=== PATIENT | male | born 1940 | race Caucasian/White ===

== ENCOUNTER 2020-12-20 05:29 | Inpatient (IN) | payer OTHER ==
[2020-12-16 14:31] VITALS: BMI 36.9
[2020-12-20] MEDS ORDERED: EPINEPHrine 1 MG/ML AMP ONE (06:32)
[2020-12-20] MEDS ORDERED: Thrombin 5000 UNITS/5 ML VIAL ONE (06:32)
[2020-12-20] MEDS ORDERED: Bupivacaine PF 0.5% 30 ML VIAL ONE (06:32)
[2020-12-20] MEDS ORDERED: Fentanyl 250 MCG/5 ML VIAL ONE (06:39)
[2020-12-20] MEDS ORDERED: Lidocaine 1% PF 5 ML VIAL ONE (07:07)
[2020-12-20] MEDS ORDERED: Metoclopramide HCl 10 MG/2 ML VIAL ONE (07:07)
[2020-12-20] MEDS ORDERED: Ondansetron PF 4 MG/2 ML Vial ONE (07:07)
[2020-12-20] MEDS ORDERED: Dexamethasone 20 MG/5 ML VIAL ONE (07:07)
[2020-12-20] MEDS ORDERED: Rocuronium Bromide 10 MG/ML (10ML VIAL) ONE (07:07)
[2020-12-20] MEDS ORDERED: PROPOFOL 200 MG/20 ML VIAL ONE (07:07)
[2020-12-20] MEDS ORDERED: Vecuronium 10 MG VIAL ONE (07:07)
[2020-12-20] MEDS ORDERED: PHENYLEPHRINE-NS 100 MCG/ML 10 ML SYRINGE ONE (07:07)
[2020-12-20] MEDS ORDERED: Ketorolac Tromethamine 30 MG/ML VIAL ONE (07:07)
[2020-12-20] MEDS ORDERED: Sodium Chloride 0.9% 10 ML ONE ×2 (07:43→11:01)
[2020-12-20] MEDS ORDERED: Phenylephrine 10 MG/ML VIAL ONE (08:21)
[2020-12-20] MEDS ORDERED: SUGAMMADEX SODIUM 200 MG/2 ML VIAL ONE (11:07)
[2020-12-20] MEDS ORDERED: HYDROmorphone 2 MG/ML VIAL ONE (11:19)
[2020-12-20] MEDS ORDERED: Promethazine HCl 25 MG/ML VIAL IM PRN ×2 (11:25→12:00)
[2020-12-20] MEDS ORDERED: Morphine Sulfate 2 MG/ML SYRINGE SLOW IVP PRN (11:25)
[2020-12-20] MEDS ORDERED: HYDROmorphone 2 MG/ML VIAL SLOW IVP PRN (11:25)
[2020-12-20] MEDS ORDERED: Promethazine HCl 25 MG/ML VIAL SLOW IVP PRN (11:25)
[2020-12-20] MEDS ORDERED: Ondansetron HCl/PF 4 MG/2 ML Vial IVP PRN (11:25)
[2020-12-20] MEDS ORDERED: PACU-Morphine 4MG/ML VIAL SLOW IVP PRN (11:25)
[2020-12-20] MEDS ORDERED: Acetaminophen 325 MG TAB PO PRN (12:00)
[2020-12-20] MEDS ORDERED: Scopolamine 1.5 mg/72 hour Patch TD PRN (12:00)
[2020-12-20] MEDS ORDERED: tiZANidine HCl 4 MG TAB PO PRN (12:00)
[2020-12-20] MEDS ORDERED: Mag-Al 1200 mg/1200 mg/30 ML UDCUP PO PRN (12:00)
[2020-12-20] MEDS ORDERED: diphenhydrAMINE 25 MG CAP PO PRN (12:00)
[2020-12-20] MEDS ORDERED: traMADol HCl 50 MG TAB PO PRN (12:00)
[2020-12-20] MEDS ORDERED: Promethazine 25 MG TAB PO PRN (12:00)
[2020-12-20] MEDS ORDERED: Morphine 2 MG/ML VIAL SLOW IVP PRN (12:00)
[2020-12-20] MEDS ORDERED: Milk Of Magnesia 30 ML UDCUP PO PRN (12:00)
[2020-12-20] MEDS: Sodium Chloride 0.9% 1,000 ML IV SCH (15:14)
[2020-12-20] MEDS: Acetaminophen/Codeine 30-300mg Tablet PO PRN ×2 (15:39→21:32)
[2020-12-20] MEDS: CEFAZOLIN 2 GM in Premix Bag 1 BAG IVPB SCH ×2 (16:52→21:18)
[2020-12-20] MEDS ORDERED: Finasteride 5 MG TAB PO SCH (21:00)
[2020-12-20] MEDS ORDERED: Tamsulosin HCl 0.4 MG CAP PO SCH (21:00)
[2020-12-21] MEDS: Acetaminophen/Codeine 30-300mg Tablet PO PRN ×4 (00:18→14:13)
[2020-12-21] MEDS: Sodium Chloride 0.9% 1,000 ML IV SCH (04:37)
[2020-12-21] MEDS ORDERED: Finasteride 5 MG TAB PO SCH (09:00)
[2020-12-21] MEDS ORDERED: Tamsulosin HCl 0.4 MG CAP PO SCH (09:00)
[2020-12-21 11:34] VITALS: BP 132/71; TEMP 98.7
== END 2020-12-21 14:29 | disposition home or self-care (01) | DRG 517 ==
LOC: SURG A 05:29 → T4-A 15:26
PROVIDERS: ADMIT Neurological Surgery; ATTEND Neurological Surgery
PROC: 01NB0ZZ Release Lumbar Nerve, Open Approach (ICD-10-PCS; principal; 2020-12-20)
DX: M48.062 Spinal stenosis, lumbar region with neurogenic claudication (principal); M19.90 Unspecified osteoarthritis, unspecified site; G89.29 Other chronic pain; N40.0 Benign prostatic hyperplasia without lower urinary tract symptoms; K21.9 Gastro-esophageal reflux disease without esophagitis; Z20.822 Contact with and (suspected) exposure to COVID-19
CPT/HCPCS: 76000; J0171; J0690; J1100; J1170; J1885; J2370; J2405; J2704; J2765; J3010; J3370; J3490; S0020